=== PATIENT | female | born 1940 | race African-American/Black ===

== ENCOUNTER 2024-08-29 04:42 | Inpatient (IN) | payer MEDICARE, OTHER ==
[~2024-08-29] VITALS: Ht 154.9 cm; Wt 77.6 kg
[2024-08-29] MEDS ORDERED: CORE25TA PO (05:50)
[2024-08-29] MEDS ORDERED: LIPI20TA PO (05:50)
[2024-08-29 05:51] LABS: BASO # 0.1 10^3/uL (0.0-0.2); BASO % 0.8 % (0.0-1.0); EOS # 0.4 10^3/uL (0.0-0.5); EOS % 4.8 % (0.0-3.0); HEMATOCRIT 33.2 % (36.0-47.0); HEMOGLOBIN 10.3 g/dl (12.0-15.5); LYMPH # 2.4 10^3/uL (1.5-5.0); LYMPH % 32.2 % (24.0-44.0); MEAN CORPUSCULAR HEMOGLOBIN 26.8 pg (27.0-33.0); MEAN CORPUSCULAR VOLUME 86.5 fl (80.0-96.0); MONO # 0.6 10^3/uL (0.0-0.8); MONO % 7.4 % (2.0-8.0); NEUTROPHILS # 4.1 10^3/uL (1.5-8.5); NEUTROPHILS % 54.4 % (36.0-66.0); PLATELET COUNT, AUTOMATED 216 10^3/uL (150-450); RED BLOOD COUNT 3.84 10^6/uL (4.00-5.40); WHITE BLOOD COUNT 7.6 10^3/uL (4.0-10.0)
[2024-08-29] MEDS ORDERED: LISI10TA22 PO (05:51)
[2024-08-29 06:23] LABS: CALCIUM LEVEL 8.6 MG/DL (8.3-10.6); CREATININE FOR GFR 0.96 MG/DL (0.55-1.30); GLOMERULAR FILTRATION RATE 59.1 (>32); POTASSIUM SERUM 4.2 MMOL/L (3.5-5.1)
[2024-08-29 06:28] LABS: THYROID STIMULATING HORMONE 5.253 uIU/ML (0.55-4.78)
[2024-08-29 06:29] LABS: CK-MB VALUE MASS 1.3 NG/ML (<3.6)
[2024-08-29 06:33] LABS: MB/CK RELATIVE INDEX 3.42 (< OR =4)
[2024-08-29] MEDS: FUROSEMIDE 40MG/4ML VIAL IV ONE (06:34)
[2024-08-29 07:20] LABS: CK-MB VALUE MASS 1.2 NG/ML (<3.6); MB/CK RELATIVE INDEX 3.15 (< OR =4)
[2024-08-29] MEDS: CARVedilol 12.5 MG TAB PO ONE (07:43)
[2024-08-29 08:16] LABS: FREE T4 0.86 NG/DL (0.89-1.76)
[2024-08-29] MEDS ORDERED: ACETAMINOPHEN 325 MG TAB PO PRN (08:25)
[2024-08-29] MEDS ORDERED: MIRT1TAB PO (08:58)
[2024-08-29] MEDS ORDERED: LISI20TA33 PO (08:58)
[2024-08-29] MEDS ORDERED: XALA0.007 OU (08:58)
[2024-08-29] MEDS ORDERED: ALEN70TA82 PO (08:58)
[2024-08-29 09:00] LABS: PERCENT SATURATION 11.7 % (13.2-45.0)
[2024-08-29] MEDS ORDERED: HOME MED LIST COMPLETE! XX SCH (09:00)
[2024-08-29 09:12] LABS: INR 1.22; PROTHROMBIN TIME 15.7 SECONDS (12.5-14.5)
[2024-08-29 09:23] LABS: FERRITIN 105.6 NG/ML (7.3-270.7)
[2024-08-29 10:53] LABS: PROCALCITONIN 0.42 ng/ml
[2024-08-29 10:57] LABS: FOLATE 10.75 NG/ML (>5.4)
[2024-08-29] MEDS: APIXABAN 5 MG TAB (ELIQUIS) PO SCH (13:16)
[2024-08-29] MEDS: ATORVASTATIN 20 MG TAB PO SCH (13:17)
[2024-08-29] MEDS: MIRTAZAPINE 7.5MG PER 1/2 TABLET PO PRN (13:17)
[2024-08-29 13:36] VITALS: BP 144/90; TEMP 97.8; O2SAT 98
[2024-08-29] MEDS: CEFDINIR 300 MG CAP (OMNICEF) PO SCH (13:40)
[2024-08-29] MEDS: LATANOPROST 0.005% OPHTH SOLN 2.5 ML OU SCH (16:37)
[2024-08-29] MEDS: FUROSEMIDE 40MG/4ML VIAL IV SCH (17:42)
[2024-08-29 20:00] VITALS: BP 152/88; TEMP 97.9; O2SAT 97
[2024-08-29] MEDS: CARVedilol 12.5 MG TAB PO SCH (21:18)
[2024-08-30 04:00] VITALS: BP 155/90; TEMP 98.1; O2SAT 96
[2024-08-30 05:56] LABS: HEMOGLOBIN 10.5 g/dl (12.0-15.5); MEAN CORPUSCULAR HEMOGLOBIN 27.1 pg (27.0-33.0); MEAN CORPUSCULAR HGB CONC 31.8 g/dl (32.0-36.5); MEAN CORPUSCULAR VOLUME 85.1 fl (80.0-96.0); PLATELET COUNT, AUTOMATED 241 10^3/uL (150-450); RED BLOOD COUNT 3.88 10^6/uL (4.00-5.40); WHITE BLOOD COUNT 9.5 10^3/uL (4.0-10.0)
[2024-08-30 06:23] LABS: ALBUMIN 2.7 G/DL (3.2-5.2); ALKALINE PHOSPHATASE 131 U/L (35-104); ALT/SGPT 80 U/L (7.0-40); AST/SGOT 82 U/L (<34); BILIRUBIN,TOTAL 0.8 MG/DL (0.3-1.2); BLOOD UREA NITROGEN 26 MG/DL (9-23); CALCIUM LEVEL 8.8 MG/DL (8.3-10.6); CARBON DIOXIDE LEVEL 30 MMOL/L (20-31); CHLORIDE LEVEL 103 MMOL/L (98-107); CREATININE FOR GFR 0.85 MG/DL (0.55-1.30); GLOMERULAR FILTRATION RATE > 60.0 (>32); GLUCOSE, FASTING 106 MG/DL (74-106); POTASSIUM SERUM 4.5 MMOL/L (3.5-5.1); SODIUM LEVEL 136 MMOL/L (136-145); TOTAL PROTEIN 6.9 G/DL (5.7-8.2)
[2024-08-30] MEDS: metOLazone 2.5 MG TAB PO ONE (08:06)
[2024-08-30 12:00] VITALS: BP 154/89; TEMP 98.1; O2SAT 99
[2024-08-30] MEDS ORDERED: SENNA 8.6 MG TAB (SENOKOT) PO PRN (14:05)
[2024-08-30] MEDS: DOCUSATE SODIUM 100MG CAPSULE PO SCH (14:30)
[2024-08-30] MEDS: FERROUS SULFATE 325MG TAB PO SCH (14:30)
[2024-08-30] MEDS: ASPIRIN 81MG ENTERIC TABLET PO SCH (14:30)
[2024-08-30 14:39] LABS: CHOLESTEROL RISK RATIO 2.48 (<5); HDL CHOLESTEROL 38.7 MG/DL (>40); LDL CHOLESTEROL 44.1 MG/DL (<100); NON-HDL-C 57.3 MG/DL
[2024-08-30 16:00] VITALS: BP 144/100; TEMP 98.2; O2SAT 96
[2024-08-30] MEDS: FUROSEMIDE 40MG/4ML VIAL IV SCH (17:06)
[2024-08-30 20:37] VITALS: BP 136/84; TEMP 99.1; O2SAT 95
[2024-08-30] MEDS ORDERED: METOPROLOL TART 12.5 MG PER 1/2 TAB PO SCH (21:00)
[2024-08-30 23:49] VITALS: BP 138/82; TEMP 99.5; O2SAT 96
[2024-08-30 23:52] VITALS: TEMP 98.2
[2024-08-31 04:25] VITALS: BP 134/84; TEMP 97.3; O2SAT 95
[2024-08-31 06:18] LABS: HEMATOCRIT 34.4 % (36.0-47.0); MEAN CORPUSCULAR HEMOGLOBIN 26.8 pg (27.0-33.0); MEAN CORPUSCULAR VOLUME 83.9 fl (80.0-96.0); PLATELET COUNT, AUTOMATED 239 10^3/uL (150-450); WHITE BLOOD COUNT 10.3 10^3/uL (4.0-10.0)
[2024-08-31 06:41] LABS: ALBUMIN 2.6 G/DL (3.2-5.2); ALKALINE PHOSPHATASE 105 U/L (35-104); ALT/SGPT 60 U/L (7.0-40); AST/SGOT 55 U/L (<34); BILIRUBIN,TOTAL 1.1 MG/DL (0.3-1.2); BLOOD UREA NITROGEN 26 MG/DL (9-23); CALCIUM LEVEL 9.1 MG/DL (8.3-10.6); CARBON DIOXIDE LEVEL 32 MMOL/L (20-31); CHLORIDE LEVEL 96 MMOL/L (98-107); CREATININE FOR GFR 0.79 MG/DL (0.55-1.30); GLOMERULAR FILTRATION RATE > 60.0 (>32); GLUCOSE, FASTING 88 MG/DL (74-106); POTASSIUM SERUM 3.9 MMOL/L (3.5-5.1); SODIUM LEVEL 135 MMOL/L (136-145); TOTAL PROTEIN 7.1 G/DL (5.7-8.2)
[2024-08-31] MEDS ORDERED: ISOVUE-370 76% 100ML VIAL As Ordered ONE (06:41)
[2024-08-31 08:00] VITALS: BP 150/92; TEMP 97.5; O2SAT 95
[2024-08-31] MEDS ORDERED: LASI20TA3 PO (10:15)
[2024-08-31] MEDS ORDERED: SENO8.6T5 PO (10:15)
[2024-08-31] MEDS ORDERED: FERR1TAB8 PO (10:15)
[2024-08-31] MEDS ORDERED: ELIQ5TAB PO (10:15)
[2024-08-31] MEDS ORDERED: CARV25TA PO (10:15)
[2024-08-31] MEDS ORDERED: CEFD300CAP PO (10:15)
[2024-08-31 11:04] LABS: FREE T3 3.8 PG/ML (2.3-4.2)
[2024-08-31 12:00] VITALS: BP 141/91; TEMP 98; O2SAT 90
[2024-08-31] MEDS: CARVedilol 12.5 MG TAB PO ONE (12:06)
[2024-08-31] MEDS: CARVedilol 12.5 MG TAB PO SCH (21:20)
[2024-09-01 04:09] VITALS: BP 131/92; TEMP 97.9; O2SAT 94
[2024-09-01 05:49] LABS: HEMOGLOBIN 10.8 g/dl (12.0-15.5); MEAN CORPUSCULAR HEMOGLOBIN 26.9 pg (27.0-33.0); MEAN CORPUSCULAR HGB CONC 31.8 g/dl (32.0-36.5); MEAN CORPUSCULAR VOLUME 84.8 fl (80.0-96.0); PLATELET COUNT, AUTOMATED 270 10^3/uL (150-450); RED BLOOD COUNT 4.01 10^6/uL (4.00-5.40); WHITE BLOOD COUNT 9.9 10^3/uL (4.0-10.0)
[2024-09-01 06:22] LABS: ALBUMIN 2.4 G/DL (3.2-5.2); ALKALINE PHOSPHATASE 116 U/L (35-104); ALT/SGPT 48 U/L (7.0-40); AST/SGOT 36 U/L (<34); BILIRUBIN,TOTAL 0.6 MG/DL (0.3-1.2); BLOOD UREA NITROGEN 28 MG/DL (9-23); CALCIUM LEVEL 8.8 MG/DL (8.3-10.6); CARBON DIOXIDE LEVEL 34 MMOL/L (20-31); CHLORIDE LEVEL 98 MMOL/L (98-107); CREATININE FOR GFR 0.91 MG/DL (0.55-1.30); GLOMERULAR FILTRATION RATE > 60.0 (>32); GLUCOSE, FASTING 117 MG/DL (74-106); POTASSIUM SERUM 3.3 MMOL/L (3.5-5.1); SODIUM LEVEL 136 MMOL/L (136-145); TOTAL PROTEIN 6.5 G/DL (5.7-8.2)
[2024-09-01 09:34] VITALS: BP 118/72
[2024-09-01] MEDS: POTASSIUM CHLORIDE 10MEQ SR TABLET PO ONE (10:29)
== END 2024-09-01 10:58 | disposition home or self-care (01) | DRG 308 ==
LOC: M ED 04:42 → M ED INP 08:39 → M MSPAV 13:27
PROVIDERS: ADMIT Internal Medicine; ATTEND Internal Medicine
PROC: B246ZZZ Ultrasonography of Right and Left Heart (ICD-10-PCS; principal; 2024-08-30)
DX: I48.91 Unspecified atrial fibrillation (principal); I63.9 Cerebral infarction, unspecified; I50.33 Acute on chronic diastolic (congestive) heart failure; N39.0 Urinary tract infection, site not specified; R74.01 Elevation of levels of liver transaminase levels; I11.0 Hypertensive heart disease with heart failure; E78.5 Hyperlipidemia, unspecified; M81.0 Age-related osteoporosis without current pathological fracture; D50.9 Iron deficiency anemia, unspecified; B96.20 Unspecified Escherichia coli [E. coli] as the cause of diseases classified elsewhere; Z90.49 Acquired absence of other specified parts of digestive tract; Z79.899 Other long term (current) drug therapy; Z88.0 Allergy status to penicillin